=== PATIENT | male | born 1950 | race Caucasian/White ===

== ENCOUNTER 2024-02-22 05:58 | Inpatient (IN) | payer OTHER, SELFPAY ==
[2024-02-16 09:37] VITALS: BMI 24.0
[2024-02-16 10:10] LABS: % Basophils 0.3 % (0-2); % Immature Granulocytes 0.4 % (0-0.5); % Monocytes 8.6 % (1.7-9.3); % Neutrophils 61.7 % (42.2-75.2); Absolute Eosinophils 0.4 10^3/uL (0-0.7); Absolute Immature Granulocytes 0.1 10^3/uL (0-0.05); Absolute Lymphocytes 3.1 10^3/uL (1.2-3.4); Absolute Neutrophils 7.4 10^3/uL (1.4-6.5); Hematocrit 45.9 % (39.0-52.0); Hemoglobin 15.5 g/dL (13.0-18.0); Mean Corp Hgb Conc. 33.8 g/dL (33.0-37.0); Mean Corpuscular Hgb 29.8 pg (27.0-31.0); Mean Corpuscular Volume 88.3 fL (80.0-94.0); Mean Platelet Volume 10.5 fL (7.4-10.4); Nucleated Red Blood Cells % 0 % (-); Platelet Count 195 10^3/uL (130-400); Red Cell Dist. Width 13.2 % (11.5-14.5)
[2024-02-16 10:11] LABS: APTT 29.4 Sec (23.4-35.0); Blood Urea Nitrogen 20 mg/dl (9-20); Calcium 10.7 mg/dl (8.4-10.2); Carbon Dioxide 28 mmol/L (22-30); Chloride 105 mmol/L (98-107); Estimated Creatinine Clearance 64 ml/min; Glucose 110 mg/dl (70-99); INR 1.01; PT 13.1 Sec (11.4-14.6); Potassium 4.6 mmol/L (3.5-5.1); Sodium 140 mmol/L (135-145); eGFR > 60.00
[2024-02-22] VITALS (38 sets, daily range): BP systolic 116–159; BP diastolic 59–91; BMI 23.9
[2024-02-22] MEDS: BACTROBAN NASAL 1 GRAM NASAL (06:53)
[2024-02-22] MEDS: PERIDEX 0.12% ORAL RINSE 15 ML PO (06:53)
--- NOTE | 2024-02-22 07:36 | W.SUR.PREOP ---
Pre-Operative Surgical Note
-
I have examined this patient prior to the performance of the scheduled procedure.
The patient's condition is unchanged from the time of the current History and
Physical and the patient is able to undergo the scheduled procedure.
[2024-02-22 09:21] LABS: ACT-LR - POC 308 Seconds (116-155)
[2024-02-22 10:13] LABS: ACT-LR - POC 260 Seconds (116-155)
[2024-02-22 11:15] LABS: ACT-LR - POC 239 Seconds (116-155)
[2024-02-22 12:20] LABS: ACT-LR - POC 224 Seconds (116-155)
--- NOTE | 2024-02-22 13:25 | CON.INTV ---
Consultation
Consultation Request
Date/Time Consultation Requested: 02/22/2024 - 1253
Date/Time Consultation Performed: 02/22/2024 - 1320
Requesting Provider: CECILY Lane
Performing Provider: Josue Diaz MD
Reason for Consultation: s/p FEVAR
Medical History
-
Chief Complaint: Elective FEVAR and b/l FEA
History of Present Illness:
73-year-old male active tobacco smoker with a past medical history of CAD s/p coronary stents X5, hypertension and inguinal hernia s/p surgery who presents with elective FEVAR plus bilateral femoral endarterectomies. Patient is known to vascular
surgery with last office visit on 01/07/[address] Crow. He has a known AAA without rupture and is a current smoker of 1-1.5 packs/day. He denies lower leg claudication but he is at risk of lower extremity sequelae and AAA-rupture given his
smoking use & atherosclerosis. Operative risks were discussed with him in the office and he agreed for endovascular aortic stent graft repair. Patient presented today for FEVAR and bilateral femoral endarterectomies and was transferred
postoperatively to the surgical intensive care unit with critical care services consulted for additional management/recommendations.
When I saw the patient he was in bed in no acute distress. He has a right upper extremity A-line reading 143/60. NIBP was 133/65. He is on room air breathing comfortably saturating 96%. Heart rate 86. He has some tenderness at his right groin
site but otherwise denies chest pain, headache, shortness of breath, abdominal pain, fevers or chills.
PMHx: Hypertension, heart disease, inguinal hernia
PSHx: Coronary stents X5, hernia surgery, prostate surgery
Past Medical History
Past Medical History: Other (Above as per HPI)
Past Surgical History: Other (Above as per HPI)
Social History
Tobacco: Smoker (1-1.5PPD)
Alcohol: None
Drug: None
Family History
Family History: CAD (Father), Cancer (Mother) and Hypertension (Mother)
Allergies / Home Medications
Allergies
Allergy/AdvReac Type Severity Reaction Status Date / Time
No Known Allergies Allergy Verified 02/22/24 06:26
Home Medications
�Medication �Instructions �Recorded �Confirmed �Last Taken �Type
aspirin 81 mg tablet,delayed 81 mg PO DAILY Blood Clot 02/10/24 02/22/24 02/21/24 06:00 History
release Prevention/Tx
atorvastatin 20 mg tablet 20 mg PO QPM High Cholesterol 02/10/24 02/22/24 02/21/24 19:00 History
cholecalciferol (vitamin D3) 125 125 mcg PO DAILY Supplement 02/10/24 02/22/24 02/21/24 06:00 History
mcg (5,000 unit) tablet (Vitamin
D3)
clopidogrel 75 mg tablet (Plavix) 75 mg PO QPM Blood Clot 02/10/24 02/22/24 02/21/24 19:00 History
Prevention/Tx
lisinopril 20 mg tablet 20 mg PO DAILY Blood Pressure 02/10/24 02/22/24 02/21/24 06:00 History
metoprolol tartrate 25 mg tablet 25 mg PO BID Blood Pressure 02/10/24 02/22/24 02/21/24 19:00 History
Review of Systems
-
History Source: Patient
All other systems: Negative unless noted
Vitals / Labs / Diagnostic Testing
Vital Signs
Temp Pulse Resp BP Pulse Ox
97.6 F 78 18 116/65 93
02/22/24 15:17 02/22/24 16:45 02/22/24 16:45 02/22/24 16:45 02/22/24 16:47
Lab Data
02/22/24 13:50
02/22/24 13:49
Laboratory Results
02/22/24
13:49
PT 14.9 H
INR 1.19
APTT 29.9
Diagnostic Testing:
Physical Exam
-
HEENT: Normocephalic and Anicteric
Cardiovascular: S1/S2 and Peripheral Edema (negative)
Respiratory: Wheeze (negative), Rales (negative), Rhonchi (negative) and Non-Labored Respirations
GI: Soft, Non Distended and Non Tender
Neurology: Awake and Alert
Skin: Warm, Dry and Other (Bandage on bilateral inguinal regions with no exsanguination seen)
General: Comfortable, Pain (Mild tenderness to right groin site) and Fever (negative)
Assessment
-
Assessment: 73-year-old male active tobacco smoker with a past medical history of CAD s/p coronary stents X5, hypertension and inguinal hernia s/p surgery who presents with elective FEVAR plus bilateral femoral endarterectomies. Patient is known to
vascular surgery with last office visit on 01/07/[address] Crow. He has a known AAA without rupture and is a current smoker of 1-1.5 packs/day. He denies lower leg claudication but he is at risk of lower extremity sequela a given his
atherosclerosis. Operative risks were discussed with him in the office and he agreed for femoral endovascular aortic repair. Patient presented today for FEVAR and bilateral femoral endarterectomies and was transferred postoperatively to the
surgical intensive care unit with critical care services consulted for additional management/recommendations.
Chronic conditions DIRECTOR OF PAYROLL: Hypertension, heart disease, inguinal hernia
Impression:
#AAA s/p FEVAR with bilateral femoral endarterectomies- POD#0
#Leukocytosis - likely reactive
#Tobacco use disorder
#Mild hyponatremia
#Mild non-anion gap metabolic acidosis
Plan:
Postoperative surgical intensive care unit monitoring
Supplemental oxygen as needed to maintain SpO2 >90-94%
Incentive spirometry encouraged
Aspiration precautions
Maintain MAP>65
Neuro and vascular checks per protocol
Replete electrolytes with K>4, Mg>2
Apply nicotine patch
Would recommend outpatient follow up with me in office considering his tobacco use and risk for COPD - I will discuss this with him in more detail tomorrow
Maintain euglycemia with goal BG 140-180
prn nebulized bronchodilators
Vascular surgery following-correspondence and operative notes reviewed
DVT prophylaxis
Early nutrition
Early mobilization
Critical care statement: A total of 44 minutes of critical care time was provided for this patient today. This includes management of unstable vital signs, evaluation of the patient at bedside, reviewing the patient's pertinent medical records
including radiographs, microbiology, laboratory evaluations, and discussion with primary team, consultants, pharmacy, nutrition, physical therapy, case management, charge nurse, critical care nursing, and respiratory therapy.
Data:
CXR 02-16-2024:
1. No acute pulmonary process.
2. 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 This could be further evaluated with follow-up CT chest as warranted.
[2024-02-22 13:58] LABS: Hematocrit 40.2 % (39.0-52.0); Hemoglobin 13.4 g/dL (13.0-18.0); Mean Corp Hgb Conc. 33.3 g/dL (33.0-37.0); Mean Corpuscular Volume 89.9 fL (80.0-94.0); Mean Platelet Volume 10.4 fL (7.4-10.4); Platelet Count 160 10^3/uL (130-400); Red Blood Cell Count 4.47 10^6/uL (4.70-6.10); Red Cell Dist. Width 13.3 % (11.5-14.5); White Blood Cell Count 24.2 10^3/uL (4.8-10.8)
[2024-02-22 14:08] LABS: INR 1.19; PT 14.9 Sec (11.4-14.6)
[2024-02-22 14:09] LABS: APTT 29.9 Sec (23.4-35.0)
[2024-02-22 14:13] LABS: Blood Urea Nitrogen 22 mg/dl (9-20); Calcium 9.2 mg/dl (8.4-10.2); Carbon Dioxide 20 mmol/L (22-30); Chloride 105 mmol/L (98-107); Estimated Creatinine Clearance 58 ml/min; Glucose 164 mg/dl (70-99); Sodium 134 mmol/L (135-145); eGFR > 60.00
[2024-02-22] MEDS: NSS 1000 IV (14:50)
--- NOTE | 2024-02-22 15:25 | W.IMMPOSTOP ---
Surgical Immed Post Op Note
-
Primary Surgeon: Dr. Sarath Crow III, MD
Assisting Surgeon: Dr. Gerber Lopez MD, PhD (PGY-1)
Pre-op Diagnosis: Abdominal aortic aneurysm
Post-op Diagnosis: Abdominal aortic aneurysm
Procedure Performed: Bilateral groin cut downs, Diagnostic arteriogram, Bilateral external iliac intravascular lithotripsy, Fenestrated EVAR, Bilateral femoral endarterectomy with bovine patch angioplasty
Anesthesia Type: General
Specimen / Cultures: None
Estimated Blood Loss: 100cc
Complications: None
Operative Findings: The patient was brought to the OR and placed in the supine position. Following anesthesia induction and intubation, a radial a-line was placed. Ultrasound guidance was used to identify the common femoral and bifurcation into SFA
and profunda bilaterally, this was marked at the skin level. The patient's left groin hernia was manually reduced at bedside. Bilateral groins were then prepped and draped in usual sterile fashion. Incisions were made on both groins. A combination
of electrocautery and sharp dissection was performed. The common femoral artery was exposed and circumferentially dissected. Proximal control of the common femoral arteries was achieved with vessel loops bilaterally. Then distal control of the SFA
and profunda vessels was obtained with vessel loops bilaterally. The left APPRENTICE/LINEMAN was stuck with a micropuncture needle and this was upsized to a 7-Bengali sheath on the left side. Diagnostic arteriogram was performed and showed significant occlusive
disease of the external iliac segments bilaterally. A micropuncture kit was then used to access the right APPRENTICE/LINEMAN and a wire was advanced over needle. Intravascular lithotripsy was performed on both external iliac segments. Following this a sheath
inserted into the right APPRENTICE/LINEMAN and the fenestrated EVAR device was positioned in the abdominal aorta and proximal external iliac arteries. A guidewire was used to select the left renal artery through the fenestration in the graft. After confirming
alignment, the device was deployed. A stent was also delivered through the fenestration into the left renal artery. Balloon angioplasty was performed to profile the fenestrated EVAR stent along its entire length. Sheaths were removed from the CFAs
bilaterally. Starting with the left APPRENTICE/LINEMAN, crockett scissors were used to extend the arteriotomy proximally along the APPRENTICE/LINEMAN and distally to the SFA. A freer was used to perform the endarterectomy. A bovine pericardial patch was then brought to the field
and trimmed to fit the length of the incision. Running 6-0 prolene was used to perform the patch angioplasty. The same steps were performed on the right side, completing the right femoral endarterectomy. Both wound beds were irrigated and hemostasis
was achieved bilaterally with gel foam. Soft tissues were closed with 2-0 and 3-0 suture layers. The skin was closed with alternating wilber and interrupted nylon sutures. Imlo dressings were applied to groins bilaterally. At the conclusion of the
case, strong doppler signals were noted in bilateral DP and PTs. The patient was extubated without complication and transferred to the PACU in stable condition.
[2024-02-22] MEDS: HEPARIN 5000 UNITS SC (15:39)
[2024-02-22] MEDS: ASPIR LOW (ENTERIC COATED) 81 MG PO (15:39)
--- NOTE | 2024-02-22 17:01 | PTCARENOTE ---
Addendum entered by Kasandra Rivera RN 02/22/24 18:25:
R rad A-line transduced, calibrated, and monitored; all ports patent and secured. Correlates w cuff pressures.
Original Note:
Received pt. from PACU into ICU rm 3366 @ approx 1515. Pt. drowsy, awakens to verbal stimuli; mostly Chadian speaking but able to understand/communicate w simple kiswahili. Ox3, denies pain. SR w 1st degree AVB on monitor. SPO2 98% on simple mask
10L; transitioned to RA, SpO2 93-95%. Pt. instructed on deep breathing exercises/IS by RT; demonstrates understanding. Tolerating clear liq, denies nausea. Crow in place draining clear/yellow urine. B/L groing MARITZA dressings c/d/i. Neurovasular
checks completed per orders- see flow sheet. #18 L AC w cardene and IVF- see flow sheet. Pt.'s to bedside, updated on plan of care. Bedrest maintained post op. Instructed on how to report care concerns. Call robison in reach.
[2024-02-22] MEDS: LIPITOR 20 MG PO (17:20)
[2024-02-22] MEDS: PLAVIX 75 MG PO (17:20)
--- NOTE | 2024-02-22 19:34 | PTCARENOTE ---
Pt aox3, primarily Estonian speaking, able to make needs known. NSR on monitor, Cardene gtt infusing per protocol. DPs and Tps positive with Doppler. Pt denies pain or loss of sensation in lower extremities. B/L Milo dressing in place with green
flashing light, dressings are clean and intact with old scant blood on right. Inguinal hernia on left groin, outlined, soft to touch. [place] right radial wrist. Crow in place with adequate urine output. Pt with no complaints at this time. Plan of
care on going.
[2024-02-22] MEDS: LOPRESSOR 25 MG PO (20:07)
--- NOTE | 2024-02-22 20:37 | PTCARENOTE ---
Pt c/o pain 8/10 at left groin site. Pt is refusing pain medication at this time and states 'I'm okay'. Site is soft, dressing CDI, pulses positive with Doppler. Left inguinal hernia remains with in outline. Pt also refused Nicotine patch.
[2024-02-22] MEDS: CARDENE 200 IV (21:25)
[2024-02-23] VITALS (38 sets, daily range): BP systolic 104–166; BP diastolic 56–121; BMI 21.9
[2024-02-23] MEDS: TYLENOL 650 MG PO ×3 (00:11→16:08)
[2024-02-23] MEDS: HEPARIN 5000 UNITS SC ×4 (00:11→23:11)
--- NOTE | 2024-02-23 01:19 | PTCARENOTE ---
Pt offered medication for left groin pain, agreed to take Tylenol. NSR with frequent PVCs. Pulses positive with Doppler. Remains on Cardene gtt for MAP between 70-90 and IVF. Turning with pillow. Plan of care on going.
[2024-02-23] MEDS: NSS 1000 IV (02:03)
[2024-02-23 04:30] LABS: Hematocrit 38.8 % (39.0-52.0); Hemoglobin 13.6 g/dL (13.0-18.0); Mean Corp Hgb Conc. 35.1 g/dL (33.0-37.0); Mean Corpuscular Hgb 29.6 pg (27.0-31.0); Mean Corpuscular Volume 84.5 fL (80.0-94.0); Mean Platelet Volume 10.3 fL (7.4-10.4); Platelet Count 154 10^3/uL (130-400); Red Blood Cell Count 4.59 10^6/uL (4.70-6.10); Red Cell Dist. Width 13.2 % (11.5-14.5)
[2024-02-23 04:49] LABS: APTT 28.1 Sec (23.4-35.0); INR 1.16; PT 14.7 Sec (11.4-14.6)
[2024-02-23 04:54] LABS: Blood Urea Nitrogen 24 mg/dl (9-20); Calcium 9.4 mg/dl (8.4-10.2); Carbon Dioxide 18 mmol/L (22-30); Chloride 109 mmol/L (98-107); Estimated Creatinine Clearance 64 ml/min; Glucose 136 mg/dl (70-99); Potassium 4.3 mmol/L (3.5-5.1); Sodium 136 mmol/L (135-145); eGFR > 60.00
[2024-02-23] MEDS: CARDENE 200 IV (05:10)
[2024-02-23 05:43] LABS: Hepatitis C Antibody Negative (Negative)
--- NOTE | 2024-02-23 05:54 | PTCARENOTE ---
Assessment unchanged, titrating Cardene per protocol. Pt CHG bath this morning, adorno care complete.
[2024-02-23] MEDS: PROTONIX 40 MG PO (08:06)
[2024-02-23] MEDS: ASPIR LOW (ENTERIC COATED) 81 MG PO (08:06)
[2024-02-23] MEDS: LOPRESSOR 25 MG PO ×2 (08:06→20:29)
[2024-02-23] MEDS: ZESTRIL 20 MG PO (08:07)
[2024-02-23] MEDS: VITAMIN D3 (cholecalciferol) 125 MCG PO (08:07)
--- NOTE | 2024-02-23 08:09 | W.PN.VS ---
Addendum entered and electronically signed by Sarath Adorno III, MD 02/23/24 15:39:
This patient was seen and examined with CECILY Zuñiga and CECILY Lane. I agree with the history and physical exam as well as the assessment and plan.
Signed:
Sarath Adorno III, MD
[facility] Vascular Surgery
[phone] (aruf)
Original Note:
Today's Communication / Plan
-
See below.
Assessment/Plan
-
Assessment: POD#1 Bilateral groin cut downs, Diagnostic arteriogram, Bilateral external iliac intravascular lithotripsy, Fenestrated EVAR, Bilateral femoral endarterectomy with bovine patch angioplasty
Plan:
DC IV fluids
DC a-line, once cardene weaned off
DC adorno
OOB to chair
PT evaluation
Subjective Data
-
Date of Service: February 23, 2024
Patient seen and examined at bedside, offers no complaints. Reports well managed post operative pain on current pain medication regimen. Denies nausea, vomiting, fever, ABD pain, and chills.
Objective Data
-
Vital Signs
Temp Pulse Resp BP Pulse Ox
98.1 F 90 22 128/57 93
02/23/24 07:41 02/23/24 07:15 02/23/24 07:15 02/23/24 07:15 02/23/24 07:15
Intake and Output
02/22/24 02/23/24 02/24/24
06:59 06:59 06:59
Intake Total 2047.5 / 2140.0 92.5 / 92.5
Output Total 2615 / 2790 175 / 175
Balance -567.5 / -650.0 -82.5 / -82.5
Intake:
Oral fluids 360 / 360
IV fluids (Total) 1687.5 / 1780.0 92.5 / 92.5
Cardene drip 387.5 / 400.0 12.5 / 12.5
NSS@80 ML/HR 1200 / 1280 80 / 80
Normosol 100 / 100
Output:
Urine, Adorno 685 / 685
Urine, Voided 1929 / 2104 175 / 175
Lab Results
02/23/24 04:13
02/23/24 04:13
Calcium 9.4 mg/dl (8.4-10.2) 02/23/24 04:13
Physical Exam
-
AAOx3, NAD
RRR
No dyspnea on room air
ABD flat, non-tender, non-distended
BL groin MARITZA dressing CDI, no evidence of hematoma, all surrounding compartments soft
Adorno draining clear yellow urine
BL feet warm, BL DP +1 palpable
--- NOTE | 2024-02-23 08:50 | W.PN.INTV ---
Today's Communication / Plan
Recommendations
Up OOB as tolerated
Encourage incentive spirometer
Maintain SpO2 >90%
Encouraged outpatient pulmonary follow-up for PFTs given his risk of COPD � patient lives in [facility] so would like to hold off on this and he understands the risks of continued tobacco use and development of COPD in addition to other
pathologies including cardiovascular disease, cerebrovascular disease, and malignancy.
Downgrade out of ICU as per vascular surgery. Cloth Handler/pulmonary service will continue to follow along while patient remains in the ICU. Once downgraded then we will sign off.
Assessment
-
Assessment: 73-year-old male active tobacco smoker with a past medical history of CAD s/p coronary stents X5, hypertension and inguinal hernia s/p surgery who presents with elective FEVAR plus bilateral femoral endarterectomies. Patient is known to
vascular surgery with last office visit on 01/07/[address] Crow. He has a known AAA without rupture and is a current smoker of 1-1.5 packs/day. He denies lower leg claudication but he is at risk of lower extremity sequela a given his
atherosclerosis. Operative risks were discussed with him in the office and he agreed for femoral endovascular aortic repair. Patient presented today for FEVAR and bilateral femoral endarterectomies and was transferred postoperatively to the
surgical intensive care unit with critical care services consulted for additional management/recommendations.
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
Impression:
#AAA s/p FEVAR with bilateral femoral endarterectomy with bovine patch angioplasty - POD#1
#Leukocytosis - likely reactive
#Tobacco use disorder
#Mild hyponatremia � resolved
#Mild hyperchloremic, non-anion gap metabolic acidosis � likely due to hypovolemia with reduced PO intake
Plan:
Postoperative surgical intensive care unit monitoring
Supplemental oxygen as needed to maintain SpO2 >90-94%
Incentive spirometry encouraged
Aspiration precautions
Maintain MAP>65
Neuro and vascular checks per protocol
Replete electrolytes with K>4, Mg>2
Nicotine patch encouraged � patient refusing
Would recommend outpatient follow up with me in office considering his tobacco use and risk for COPD - I discussed this with him today however he would like to see his own doctor about this as seeing us at the [facility] office is too far from where they
live, which is in [facility]. He understands his risk of tobacco use and the risk of development of COPD, lung disease, and malignancy in addition to other cardiovascular/cerebrovascular diseases including [place] + stroke.
Maintain euglycemia with goal BG 140-180
prn nebulized bronchodilators
Vascular surgery following-correspondence and operative notes reviewed
DVT prophylaxis
Early nutrition
Early mobilization
No indication for stress ulcer ppx
Downgrade out of ICU as per vascular surgery. Cloth Handler/pulmonary service will continue to follow along while patient remains in the ICU. Once downgraded then we will sign off.
Total time spent today was 75 minutes for this encounter. Time includes reviewing laboratory test/imaging results, reviewing pertinent medical records, obtaining and reviewing medical history, performing an appropriate exam, ordering medications,
tests and procedures. Time also includes documentation of this encounter, coordinating patient care and communicating with other healthcare professionals. Total time does not include separately billed tests performed on this date of service.
Data:
CXR 02-16-2024:
1. No acute pulmonary process.
2. 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 This could be further evaluated with follow-up CT chest as warranted.
Subjective Dataa
Subjective Data
Date of Service:
Date of Service: February 23, 2024
Chief Complaint: Cloth Handler Follow Up
Subjective:
Off cardene since this AM. A-line removed, Crow removed. DP and PT pulses are palpable. No acute events reported from overnight. HR 73, BP 141/72, SpO2 93% on room air. He feels well. at bedside. He has a cough that is mainly heard in
the morning to likely a smoker's cough. He denies chest pain, headache, shortness of breath, fevers or chills.
Review of Systems
General: Other (Negative unless mentioned above)
Objective Data
Data Reviewed
Vital Signs / I&O / Oxygen:
Vital Signs
Temp Pulse Resp BP Pulse Ox
98.1 F 81 31 104/67 93
02/23/24 07:41 02/23/24 09:00 02/23/24 08:00 02/23/24 08:59 02/23/24 08:00
Intake and Output
02/22/24 02/23/24 02/24/24
06:59 06:59 06:59
Intake Total 2047.5 / 2140.0 425.0 / 425.0
Output Total 2615 / 2790 405 / 405
Balance -567.5 / -650.0 20.0 / 20.0
SaO2 93
Physical Exam
General: Respiratory Distress (negative) and Comfortable
HEENT: Normocephalic and Anicteric
Cardiovascular: S1-S2 and Peripheral Edema (negative)
Respiratory: Wheeze (negative), Crackles (negative), Rhonchi (negative) and Non-Labored Respirations
GI: Soft, Non Distended, Non Tender and Normal Bowel Sounds
Neurology: AO x 3 and Tremors (negative)
Skin: Warm, Dry, Cyanosis (negative) and Other (Milo dressing on bilateral groins)
Labs/Micro/Reports
Lab Data
02/23/24 04:13
02/23/24 04:13
Laboratory Results
02/22/24 02/23/24
13:49 04:13
PT 14.9 H 14.7 H
INR 1.19 1.16
APTT 29.9 28.1
--- NOTE | 2024-02-23 11:25 | PTCARENOTE ---
Pt ambulated around unit without difficulty. Left in room sitting in chair. C/o discomfort from dressing, but refusing pain medicine at present. Ate breakfast. Has been instructed on using IS. Still without void since catheter removed this am.
--- NOTE | 2024-02-23 13:15 | OR.RPT ---
Operative Report
Operative Report
Date of operation: 02/22/2024
Pre Op Diagnosis:
1.) Juxtarenal abdominal aortic aneurysm
2.) Calcified bilateral iliac artery stenoses
3.) Calcified bilateral common femoral artery stenoses
Post Op Diagnosis:
1.) Juxtarenal abdominal aortic aneurysm
2.) Calcified bilateral iliac artery stenoses
3.) Calcified bilateral common femoral artery stenoses
Procedure:
1.) Percutaneous fenestrated aortic stent graft repair of juxtarenal abdominal aortic aneurysm:
brooklyn P-2-28-109, large fenestration for SMA, scallop for the right renal, small fenestration left renal
Zfen D-12 -28-76 distal main body
ZSLE 24-56 RIGHT iliac extension
ZSLE 16-74 LEFT iliac extension
2.) Left renal artery stenting for fenestrated stent graft repair (7 mm x 19 mm [place] VBX, post-dilated proximal to 10 mm)
3.) BILATERAL femoral artery cutdowns for endovascular device delivery
4.) BILATERAL intravascular lithotripsy to iliac bifurcation and proximal external iliac artery calcified stenoses (8 mm x 60 mm M5+ left; 9 mm x 30 mm L6 right)
4.) BILATERAL common femoral artery endarterectomy with bilateral patch angioplasty using bovine pericardium
Surgeon: Sarath Crow III, MD
Inspector Experimental Assembly: Gerber Lopez MD PhD, PGY1
Anesthesia: General
Complications: None
Fluoroscopy:
60 minutes
1440 mGy
337.07 DAP
History and Indications for Procedure: Large juxtarenal abdominal aortic aneurysm with calcified bilateral iliofemoral disease.
Procedure in Detail: Tristan Mireles was correctly identified and placed supine on the operating table. After adequate induction of anesthesia the abdomen, pelvis and bilateral groins were positioned, prepped and draped in the usual sterile fashion.
Preoperative antibiotics were administered. A timeout procedure was performed with the nursing and anesthesia staff confirming the patients identity as well as the nature and laterality of the procedure.
The femoral bifurcations were marked bilaterally at the skin with ultrasound guidance for incision planning purposes. Vertical groin ncisions were made bilaterally. Electrocautery was used on the subcutaneous tissue. Lymphatics were divided
between silk ties. Sharp dissection was then utilized to expose the common femoral arteries bilaterally. Dissection continued under the inguinal ligament bilaterally to expose the distal external iliac artery. The distal external iliac artery
bilaterally was encircled with a vessel loop. Dissection was then continued distally to the femoral bifurcations. The proximal superficial femoral artery and profunda femoral artery were each exposed and encircled with vessel loops.
Under direct visualization, bilateral femoral artery 5Fr sheath access was obtained using a micropuncture technique. Bilateral 8 Fr sheaths were placed over Bentson wires. The patient was systemically heparinized.
Retrograde iliac arteriograms were performed through the bilateral sheaths. These demonstrated significant calcified iliac artery disease at the iliac bifurcations and proximal external iliac arteries. Under roadmap guidance these were crossed
easily with Glidewires bilaterally. The wires were positioned in the abdominal aorta. The wires were then exchanged out for a 0.014 wires bilaterally. Due to the heavily calcified nature of the arterial disease and in an effort to modify the
calcium to achieve maximum luminal gain with endovascular intervention I elected to proceed with intravascular lithotripsy. A 8 mm x 60 mm M5+ Shockwave balloon was placed across the stenosis on the left under roadmap guidance. A 9 mm x 30 mm L6
Shockwave balloon was placed across the stenosis on the right under roadmap guidance. Alternating rounds of lithotripsy pulse delivery at sub-nominal pressure and angioplasty at nominal pressure was performed across the stenoses bilaterally. In
between rounds of pulse delivery and angioplasty the balloons were deflated and repositioned under roadmap guidance. All 300 pulses were delivered from each balloon. Subsequent arteriogram demonstrated an excellent technical result with significant
improvement of the iliac disease bilaterally. At this point I felt comfortable proceeding with the aortic stent graft delivery.
The wire on the right was exchanged out for a Lunderquist wire and the tip was positioned in the in the proximal descending thoracic aorta. The wire on the left was exchanged out for a Bentson. From the left femoral access A marker pigtail
catheter was then placed for angiographic purposes in the abdominal aorta.
The fenestrated stent graft (Zfen-P-2 -28-109) was opened and prepped on the back table. The stent was oriented in the proper position under radiographic guidance outside the body. While maintaining the proper orientation, the fenestrated main body
was advanced over the Lunderquist wire under radiographic guidance and placed in the approximate position. A diagnostic aortogram was performed which clearly demonstrated the origins of the superior mesenteric artery and renal arteries bilaterally.
These were marked on the screen. The Zfen main body was then positioned more precisely and carefully unsheathed to the distal end of the stent.
From the left femoral access using a KMP catheter and a glidewire, the fenestrated main body was accessed. A 7 Fr Juan sheath was then advanced over the wire into the fenestrated main body. Using a [employer] 4 catheter and a glidewire the left
renal artery was accessed. The glide wire was exchanged out for a Enriquez wire. The 7 Fr Juan sheath was advanced through the left renal fenestration and into the [place] renal artery. A 7 mm x 19 mm [place] VBX covered stent was then advanced over the
wire and placed across the fenestration still inside the sheath.
Following successful cannulation of the left renal artery fenestrations I then completed the deployment of the fenestrated main body with release of the diameter reducing wires and release of the top cap. The top cap was then carefully recaptured
under radiographic guidance and the delivery system carefully removed over the Lunderquist wire.
A Coda balloon was then inserted on the right and the proximal seal zones of the Zfen main body were profiled with the Juan sheath in position. The Coda was then removed over the wire.
The renal fenestration marker on the left was closed by adjusting the C-arm obliquity. The Juan sheath was then retracted to fully expose the VBX stent. The stent was properly positioned across the fenestration under magnification view and deployed
by inflating the balloon to nominal pressure. The Juan sheath was re-advanced into the VBX to 'swallow' the balloon as it was deflated. A 10 mm x 20 mm angioplasty balloon was then positioned in the proximal portion of the VBX. The sheath was
retracted and the balloon inflated while maintaining gentle forward pressure to post-dilate the proximal end of the stent. The sheath was once again re-advanced into the stent by swallowing the balloon as it deflated. The Juan sheath was left in
place inside the VBX while the distal main body was introduced.
The distal main body (Zfen-D-12 -28-76) was prepped on the back table and brought to the field. The device was oriented outside the body under radiographic guidance. Over the Lunderquist wire on the right the distal main body was introduced
carefully under radiographic guidance and positioned properly. The Juan sheath and wire was then removed. The distal main body was then deployed down to the contralateral gate.
From the left femoral sheath the contralateral gate was successfully cannulated using a KMP catheter and a glidewire. I confirmed proper position within the gate and main body by spinning a pigtail catheter in the main body as well as by maintaining
forward pressure on the pigtail catheter as I released the top cap constraining mechanism and watching the catheter jump forward on fluoroscopy. After confirming the gate cannulation I advanced the catheter and wire into the proximal descending
thoracic aorta and then exchanged out for a Lunderquist. A marker pigtail catheter was placed over the Lunderquist and a retrograde sheath arteriogram was performed. I measured the length for the left iliac extension and the iliac bifurcation was
clearly marked. The pigtail was removed and over the Lunderquist wire the contralateral limb extension (ZSLE 16-74) was advanced into the proper position with adequate overlap and preservation of the iliac bifurcation. The stent was deployed without
difficulty.
I then completed the deployment of the distal main body. The delivery system was carefully removed over the wire under radiographic guidance. A retrograde sheath arteriogram was performed on the ipsilateral side. Over the Lunderquist wire the
ipsilateral limb extension was placed (ZSLE 24-56). Proper overlap was obtained and the stent was deployed without difficulty. The delivery system was then removed over the wire.
A Coda balloon was then advanced one side at a time. The overlap between the fenestrated main body and the distal main body was profiled with the Coda. Both iliac limbs were also profiled including the overlap and the distal seal zones bilaterally.
A pigtail catheter was placed once again. Stiff wires were removed. A completion aortogram demonstrated an excellent technical result. There was brisk flow through the aortic stent and iliac limbs. The renal arteries were widely patent bilaterally
with brisk flow. The left renal artery stent was widely patent with brisk flow. The superior mesenteric artery filled briskly and was widely patent. The aneurysm was excluded and no endoleak was identified.
We then focused our attention on the common femoral endarterectomy portion of the procedure bilaterally. On the left, the distal vessel loops were secured. The sheath was removed over the Bentson wire. The proximal vessel loop was secured and
then replaced with a Derra clamp. Daniel scissors were used to extend the arteriotomy on the common femoral artery. The arteriotomy was carried distally to the proximal superficial femoral artery. The arteriotomy was extended up to the proximal
common femoral artery. An endarterectomy was performed in the standard fashion with a Riverside elevator. The proximal extent of the plaque was transected and then additional elements of plaque were pulled out from the distal external iliac artery
using forceps and clamps. The distal end of the plaque was feathered in the proximal superficial femoral artery. A posterior flap in the proximal superficial femoral artery was tacked down with interrupted 6-0 Prolene suture. The endarterectomy
plane was then irrigated with heparinized saline solution and any loose fronds of tissue were removed. I brought onto the field a piece of bovine pericardium and this was fashioned appropriately to be used as a patch. The patch was then sewn in
place using a running 6-0 Prolene suture. Prior to the completion of the anastomosis, we forward and back bled the arteries. The anastomosis was then completed. The proximal and distal vessel loops were then released. There was an excellent
pulse in the common femoral artery, proximal profunda femoral artery and proximal superficial femoral artery. The suture line was closely inspected for hemostasis which was achieved.
We then proceeded with the right side. On the right, the distal vessel loops were secured. The sheath was removed over the Bentson wire. The proximal vessel loop was secured and then replaced with a Derra clamp. Daniel scissors were used to extend
the arteriotomy on the common femoral artery. The arteriotomy was carried distally to the proximal superficial femoral artery. The arteriotomy was extended up to the proximal common femoral artery. An endarterectomy was performed in the standard
fashion with a Riverside elevator. The proximal extent of the plaque was transected and then additional elements of plaque were pulled out from the distal external iliac artery using forceps and clamps. The distal end of the plaque was feathered in
the proximal superficial femoral artery with no distal intimal flap identified. Plaque was everted from the proximal profunda femoral artery. A flap was tacked down at the origin of the profunda femoral artery with several interrupted 7-0 Prolene
sutures along the back wall. The endarterectomy plane was then irrigated with heparinized saline solution and any loose fronds of tissue were removed. I brought onto the field a piece of bovine pericardium and this was fashioned appropriately to
be used as a patch. The patch was then sewn in place using a running 6-0 Prolene suture. Prior to the completion of the anastomosis, we forward and back bled the arteries. The anastomosis was then completed. The proximal and distal vessel loops
were then released. There was an excellent pulse in the common femoral artery, proximal profunda femoral artery and proximal superficial femoral artery. The suture line was closely inspected for hemostasis which was achieved.
Satisfied with this result, we then concluded the procedure. Heparin was reversed with protamine. The wounds were both irrigated with copious amounts of warm saline solution. Hemostasis was achieved within the wound beds bilaterally. The wounds
were then closed in multiple layers and sterile MARITZA dressings were applied.
The patient tolerated the procedure well and was taken to the PACU in stable condition.
Attestation: I was present and responsible for all documented portions of the above procedure.
Sarath Crow III, MD
[facility]
[phone] (vrod)
[2024-02-23] MEDS: NEURONTIN 100 MG PO ×2 (16:09→20:29)
[2024-02-23] MEDS: PLAVIX 75 MG PO (18:27)
[2024-02-23] MEDS: LIPITOR 20 MG PO (18:27)
--- NOTE | 2024-02-23 20:30 | PTCARENOTE ---
rec'd patient. assessment as document. hygiene provided. tele pack. OOB to void in BR. denies need for pain meds at this time. call robison within reach, care ongoing.
--- NOTE | 2024-02-24 00:38 | PTCARENOTE ---
report called to [facility] pt being transferred to 2133
--- NOTE | 2024-02-24 00:45 | PTCARENOTE ---
Pt transferred from ICU to room 2133 at this time, aaox3, denies pain. MARITZA drains b/l groin in place, dsg intact, some bruising around the dressing R>L. Pt oriented to room and call light, care ongoing.
[2024-02-24 01:00] VITALS: BMI 23.5
[2024-02-24 01:01] VITALS: BP 147/78
[2024-02-24] MEDS: ROXICODONE 5 MG PO ×2 (03:30→12:54)
[2024-02-24 03:36] VITALS: BP 149/91
[2024-02-24 05:27] LABS: Hematocrit 39.2 % (39.0-52.0); Hemoglobin 13.4 g/dL (13.0-18.0); Mean Corp Hgb Conc. 34.2 g/dL (33.0-37.0); Mean Corpuscular Volume 87.7 fL (80.0-94.0); Mean Platelet Volume 11.2 fL (7.4-10.4); Platelet Count 123 10^3/uL (130-400); Red Blood Cell Count 4.47 10^6/uL (4.70-6.10); Red Cell Dist. Width 13.3 % (11.5-14.5); White Blood Cell Count 21.8 10^3/uL (4.8-10.8)
[2024-02-24 05:48] LABS: Blood Urea Nitrogen 25 mg/dl (9-20); Carbon Dioxide 21 mmol/L (22-30); Chloride 106 mmol/L (98-107); Estimated Creatinine Clearance 71 ml/min; Glucose 135 mg/dl (70-99); Potassium 4.2 mmol/L (3.5-5.1); Sodium 135 mmol/L (135-145); eGFR > 60.00
[2024-02-24 07:20] VITALS: BP 142/84
--- NOTE | 2024-02-24 08:00 | W.PN.VS ---
Addendum entered and electronically signed by David Gonsalez MD 02/24/24 09:56:
Seen and examined with TAZ Mckeon. Agree with findings as noted below. Patient without significant complaints. Asking about going home. No abdominal pain. No postprandial pain. Abdomen is soft, nondistended, nontender. Groin harvey dressing is
clean dry and intact bilaterally. No hematomas. Ecchymosis noted in right groin but no hematoma. Feet are both warm with palpable DP pulses. Labs reviewed. Creatinine within normal limits. Hemoglobin stable. Plan/as discussed and noted below.
Original Note:
Today's Communication / Plan
-
Patient seen and examined at bedside with Dr. David Gonsalez, below plan reviewed with atteding.
Assessment/Plan
-
Assessment: POD#2 Bilateral groin cut downs, Diagnostic arteriogram, Bilateral external iliac intravascular lithotripsy, Fenestrated EVAR, Bilateral femoral endarterectomy with bovine patch angioplasty
Plan:
Continue to encourage ambulation as tolerated
PT
Continue anti-platelet of Plavix 75mg PO daily
Will follow up in office as scheduled in roughly 2 weeks
Likely dc this afternoon, vascular team will change HARVEY dressing prior to discharge
Subjective Data
-
Date of Service: February 24, 2024
Patient seen and examined at bedside, reports well managed post operative pain. Tolerating PO diet. Denies nausea, vomiting, fever, and chills. Reports eagerness for discharge to home.
Objective Data
-
Vital Signs
Temp Pulse Resp BP Pulse Ox
98.7 F 92 14 142/84 96
02/24/24 07:20 02/24/24 07:20 02/24/24 07:20 02/24/24 07:20 02/24/24 07:20
Intake and Output
02/23/24 02/24/24 02/25/24
06:59 06:59 06:59
Intake Total 2047.5 / 2140.0 1505.0 / 1505.0
Output Total 2615 / 2790 2204
Balance -567.5 / -650.0 -700.0 / -700.0
Intake:
Oral fluids 360 / 360 1320 / 1320
IV fluids (Total) 1687.5 / 1780.0 185.0 / 185.0
Cardene drip 387.5 / 400.0 25.0 / 25.0
NSS@80 ML/HR 1200 / 1280 160 / 160
Normosol 100 / 100
Output:
Urine, Crow 685 / 685
Urine, Voided 1929 / [id number]
Lab Results
02/24/24 04:51
02/24/24 04:51
Calcium 10.0 mg/dl (8.4-10.2) 02/24/24 04:51
Physical Exam
-
AAOx3, NAD
RRR
No dyspnea on room air
ABD flat, non-tender, non-distended
BL groin HARVEY dressing CDI, no evidence of hematoma, all surrounding compartments soft, some ecchymosis at Right groin
BL feet warm, BL DP +1 palpable
[2024-02-24] MEDS: ASPIR LOW (ENTERIC COATED) 81 MG PO (09:00)
[2024-02-24] MEDS: VITAMIN D3 (cholecalciferol) 125 MCG PO (09:00)
[2024-02-24] MEDS: HEPARIN SC ×2 (09:01→09:22)
[2024-02-24] MEDS: LOPRESSOR 25 MG PO (09:01)
[2024-02-24] MEDS: NEURONTIN 100 MG PO ×2 (09:01→15:05)
[2024-02-24] MEDS: ZESTRIL 20 MG PO (09:01)
[2024-02-24 09:09] VITALS: BP 157/93; PULSE 96
--- NOTE | 2024-02-24 09:12 | PTOTSP ---
The patient is independent with ambulation and elevations, offering no concerns regarding mobility upon return home today. No PT needs identified at this time, will sign off.
[2024-02-24 11:15] VITALS: BP 148/87
--- NOTE | 2024-02-24 12:54 | CM ---
Patient is Salvadorean. Initial assessment completed with (via Tele[employer]) and patient. Patient deferred to because her understanding of Comoran is better. Patient lives with his in a 2 story condo with B/B on 2nd and sofa and 1/2 bath on
1st, no steps to enter, no in-home services. 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 No history of psychiatric hospitalizations. [facility] and PCP is Dr. Chantel Liriano. Anticipate no needs at
discharge. Offered HH VN. said she was a nurse in [place] and will care for patient.
--- NOTE | 2024-02-24 13:13 | W.[place]-PDMP ---
[place]-PDMP
-
Checked the [place]- Prescription Drug Monitoring Program website, no red flags identified; safe to proceed with prescription.
--- NOTE | 2024-02-24 13:13 | W.DS.TRANS ---
DC Summary - Water Plumber
-
Discharge Instructions:
Discharge Diagnosis/Procedures FEVAR for AAA with bilateral femoral
endarterectomies
Diet As tolerated
Activity No strenuous activity
Driving Restrictions No driving for 2 weeks
Bathing Restrictions OK to Shower
Instructions:
Stand-Alone Forms: DC Instr - Vascular OR
Changes to Home Medications: No
Discharge Medications:
DC Medications w/original date entered in [employer]
aspirin 81 mg tablet,delayed release 81 mg PO DAILY Blood Clot Prevention/Tx 02/10/24
atorvastatin 20 mg tablet 20 mg PO QPM High Cholesterol 02/10/24
cholecalciferol (vitamin D3) 125 mcg (5,000 unit) tablet (Vitamin D3) 125 mcg PO DAILY Supplement 02/10/24
clopidogrel 75 mg tablet (Plavix) 75 mg PO QPM Blood Clot Prevention/Tx 02/10/24
lisinopril 20 mg tablet 20 mg PO DAILY Blood Pressure 02/10/24
metoprolol tartrate 25 mg tablet 25 mg PO BID Blood Pressure 02/10/24
gabapentin 100 mg capsule 100 mg PO TID #90 caps 02/24/24
oxycodone 5 mg tablet 5 mg PO Q4HPRN PRN moderate pain #12 tabs 02/24/24
Home Medication Changes
Added:
gabapentin 100 mg capsule 100 mg PO TID #90 caps 02/24/24
oxycodone 5 mg tablet 5 mg PO Q4HPRN PRN moderate pain #12 tabs 02/24/24
Pending Results: No
--- NOTE | 2024-02-24 13:14 | W.DCSUMMARY ---
Discharge Summary
Discharge Data
Date of Admission: 02/22/24
Date of Discharge: 02/24/24
-
Pending Results: No
Hospital Course
Attending: Sarath Crow III, MD
Consultants: Pulmonary medicine
Allergies: NKDA
Procedure with date: Percutaneous fenestrated aortic stent graft repair of juxtarenal abdominal aortic aneurysm, Left renal artery stenting for fenestrated stent graft repair, BILATERAL femoral artery cutdowns for endovascular device delivery,
BILATERAL intravascular lithotripsy to iliac bifurcation and proximal external iliac artery calcified stenoses (8 mm x 60 mm M5+ left; 9 mm x 30 mm L6 right), BILATERAL common femoral artery endarterectomy with bilateral patch angioplasty using
bovine pericardium by Sarath Crow III, MD on 02/22/2024
History of present illness: The patient is an 73-year-old male with multiple medical conditions including: Hypertension, heart disease, hernia, and abdominal aortic aneurysm. Patient presented on 02/22/2024 for scheduled procedure with Dr. Sarath Haynes
Mignon. Patient presented at baseline health with no reports of recent illness or trauma.
Hospital Course: Briefly, the patient underwent scheduled for FEVAR with bilateral femoral endarterectomies without complications, and recovered in PACU. Following recovery phase one and two patient was transferred to intensive care unit per
protocol for continued hemodynamic monitoring. Senior Business Process Analyst consulted to aid in medical management from a critical care perspective. POD #1 (02/23/2024) Bilateral groin surgical maritza dressings clean, dry, and intact. No evidence of hematoma. Arterial
line, IV fluids, and Crow catheter discontinued. Patient able to ambulate without difficulty or incident. Patient stable for downgrade to medical surgical floor with telemetry. POD #2 (02/24/2024) patient reports well-managed postoperative pain.
Bilateral groin maritza dressings changed by vascular surgery team. PT evaluated patient and deemed safe for discharge home without additional needs. Patient stable for discharge to home.
Prescriptions and follow up appointment are included in the DC summary cryptographic center specialist note. All instructions were given to the patient in both written and verbal form and the patient expressed understanding.
Discharge Plan
-
Patient Disposition: Home (Routine Discharge)
Discharge Diagnosis/Procedures: Percutaneous fenestrated aortic stent graft repair of juxtarenal abdominal aortic aneurysm
Condition: Good
Diet: As tolerated
Activity: No strenuous activity
Driving Restrictions: No driving for 2 weeks
Bathing Restrictions: OK to Shower
Activity Restrictions/Additional Instructions:
The white MARITZA dressing on the groin site can be peeled off and removed on 02/27, you may throw the dressing and battery pack away.
Until removal you may disconnect at hub closest to your body to shower and re-connect after shower
The battery pack will vibrate and blink different colors, this is normal.
If the dressing becomes saturated or peels away before removal date that is ok, you may remove it at that time.
After removal if you would like to cover the site with gauze you may, change this daily or if wet. You also may leave open to air.
DO NOT SOAK incision. Showering is fine but no standing water(tub/pool).
Keep this incision as dry as you can when not showering.
Stand Alone Forms: DC Instr - Vascular OR
Referrals:
Chantel Liriano MD [Family Provider] -
Rosa M Hills CRNP [Specified Professional Personl] - 03/09/24 9:00 am
Prescriptions:
New
gabapentin 100 mg Capsule
100 mg PO TID Qty: 90 0RF
oxycodone 5 mg Tablet
5 mg PO Q4HPRN PRN (Reason: moderate pain) Qty: 12 0RF
Continued
atorvastatin 20 mg Tablet
20 mg PO QPM
lisinopril 20 mg Tablet
20 mg PO DAILY
clopidogrel [Plavix] 75 mg Tablet
75 mg PO QPM
aspirin 81 mg Tablet,Delayed Release (Dr/Ec)
81 mg PO DAILY
metoprolol tartrate 25 mg Tablet
25 mg PO BID
cholecalciferol (vitamin D3) [Vitamin D3] 125 mcg (5,000 unit) Tablet
125 mcg PO DAILY
Discharge Orders:
Discharge Patient (As Directed); Ordered 02/24/24
Ordered By: Naomi Mckeon
Discharge Date and Time
Discharge Date/Time: 02/24/24 15:29
Print Language: Eritrean
--- NOTE | 2024-02-24 13:45 | CM ---
Patient has been medically cleared for discharge to home with no additional skilled services. Offered VN services. Patient and declined. 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 will transport home.
[2024-02-24 15:05] VITALS: BP 130/74
--- NOTE | 2024-02-24 15:12 | PTCARENOTE ---
Patient being discharged home, to transport. Patient's tele pack removed by tech, IV removed by flow nurse Ami. Patient dressed and belongings gathered in room. Discharge instructions/education on MARITZA drains reviewed with patient and spouse
by Ami YANG. Patient's scheduled 1600 gabapentin administered by this RN, vitals taken prior to discharge.
== END 2024-02-24 15:29 | disposition home or self-care (01) | DRG 269 ==
LOC: 2 NORTH 05:58
PROVIDERS: Nurse Practitioner; Nurse Practitioner Acute Care; ADMITTING PHYSICIAN Surgery Vascular Surgery; CONSULT PHYSICIAN Internal Medicine Critical Care Medicine; FAMILY PHYSICIAN Internal Medicine
PROC: 04FH3ZZ Fragmentation of Right External Iliac Artery, Percutaneous Approach (ICD-10-PCS; 2024-02-22)
PROC: 04FJ3ZZ Fragmentation of Left External Iliac Artery, Percutaneous Approach (ICD-10-PCS; 2024-02-22)
PROC: 04CK3ZZ Extirpation of Matter from Right Femoral Artery, Percutaneous Approach (ICD-10-PCS; 2024-02-22)
PROC: 04CL3ZZ Extirpation of Matter from Left Femoral Artery, Percutaneous Approach (ICD-10-PCS; 2024-02-22)
PROC: 04UL3KZ Supplement Left Femoral Artery with Nonautologous Tissue Substitute, Percutaneous Approach (ICD-10-PCS; 2024-02-22)
PROC: 04V03EZ Restriction of Abdominal Aorta with Branched or Fenestrated Intraluminal Device, One or Two Arteries, Percutaneous Approach (ICD-10-PCS; 2024-02-22)
PROC: 04UK3KZ Supplement Right Femoral Artery with Nonautologous Tissue Substitute, Percutaneous Approach (ICD-10-PCS; 2024-02-22)
DX: I71.42 Juxtarenal abdominal aortic aneurysm, without rupture (principal); E87.1 Hypo-osmolality and hyponatremia; E87.20 Acidosis, unspecified; I70.203 Unspecified atherosclerosis of native arteries of extremities, bilateral legs; F17.210 Nicotine dependence, cigarettes, uncomplicated; K40.90 Unilateral inguinal hernia, without obstruction or gangrene, not specified as recurrent; I10 Essential (primary) hypertension; I25.10 Atherosclerotic heart disease of native coronary artery without angina pectoris; E86.1 Hypovolemia; Z79.82 Long term (current) use of aspirin; Z79.899 Other long term (current) drug therapy; Z82.49 Family history of ischemic heart disease and other diseases of the circulatory system; Z95.5 Presence of coronary angioplasty implant and graft
CPT/HCPCS: 88304; 88311; 34812; 34843; 35371; 36415; 37236; 71046; 80048; 85025; 85027; 85610; 85730; 86803; 86850; 86900; 86901; 87070; 97162; 99406; C1725; C1760; C1769; C1874; C1887; C1892; C1894; C2628; C9764; Q9967